=== PATIENT | female | born 1970 | race Caucasian/White ===

== ENCOUNTER 2020-03-27 15:25 | Emergency (ER) | payer OTHER ==
[2020-03-27 15:53] VITALS: BP 139/80; TEMP 99; BMI 19.9
--- OUTSIDE RECORDS SUMMARY | 2020-03-27 16:20 | XMS ---
:1970 Author Organization [facility] Care Team Providers Name Role Phone Chumaceiro, Damon Unavailable Unavailable Chumaceiro, Damon Unavailable Unavailable Chumaceiro, Damon Unavailable Unavailable Chumaceiro, Damon Unavailable Unavailable Chumaceiro, Damon Unavailable Unavailable Chumaceiro, Damon Unavailable Unavailable Chumaceiro, Damon Unavailable Unavailable Chumaceiro, Damon Unavailable Unavailable EYAL WOODS Unavailable EYAL WOODS Unavailable Re-disclosure Warning The records that you are about to access may contain information from federally- assisted alcohol or drug abuse programs. If such information is present, then the following federally mandated warning applies: This information has been disclosed to you from records protected by federal confidentiality rules (42 CFR part 2). The federal rules prohibit you from making any further disclosure of this information unless further disclosure is expressly permitted by the written consent of the person to whom it pertains or as otherwise permitted by 42 CFR part 2. A general authorization for the release of medical or other information is NOT sufficient for this purpose. The Federal rules restrict any use of the information to criminally investigate or prosecute any alcohol or drug abuse patient.The records that you are about to access may contain highly sensitive health information, the redisclosure of which is protected by Article 27-F of the [facility] Public Health law. If you continue you may haveaccess to information: Regarding HIV / AIDS; Provided by facilities licensed or operated by the [facility] Office of Mental Health; or Provided by the [facility] Office for People With Developmental Disabilities. If such information is present, then the following [facility] mandated warning applies: This information has been disclosed to you from confidential records which are protected by state law. State law prohibits you from making any further disclosure of this information without the specific written consent of the person to whom it pertains, or as otherwise permitted by law. Any unauthorized further disclosure in violation of state law may result in a fine or correction sentence or both. A general authorization for the release of medical or other information is NOT sufficient authorization for further disclosure. Encounters Encounter Providers Location Date Indications Data Source(s ) Attender: Damon 03/25/2020 [facility] EDT Office Attender: Damon 03/25/2020 12:00:00 AM EDT [facility] ([facility] Office Attender: Damon 03/24/2020 12:00:00 AM EDT [facility] ([facility] Office Attender: Damon 03/24/2020 12:00:00 AM EDT [facility] Office Attender: EYAL WOODS 03/23/2020 12:00:00 AM EDT [facility] Office Attender: EYAL WOODS 03/23/2020 12:00:00 AM EDT [facility] Office Attender: EYAL WOODS 03/23/2020 12:00:00 AM EDT [facility] Office Attender: EYAL WOODS 03/23/2020 12:00:00 AM EDT [facility] Office Attender: Damon 03/18/2020 12:00:00 AM EDT [facility] Office Attender: EYAL WOODS 03/16/2020 12:00:00 AM EDT [facility] Office Attender: EYAL WOODS 03/16/2020 12:00:00 AM EDT [facility] Office Attender: EYAL WOODS 03/16/2020 12:00:00 AM EDT [facility] Office Attender: EYAL WOODS 03/16/2020 12:00:00 AM EDT [facility] Office Attender: Damon 03/10/2020 12:00:00 AM EDT [facility] Office Attender: Damon 03/10/2020 12:00:00 AM EDT [facility] Office Attender: Damon 03/10/2020 12:00:00 AM EDT [facility] Office Attender: Damon 03/10/2020 12:00:00 AM EDT [facility] ([facility] Office Attender: Damon 03/10/2020 12:00:00 AM EDT [facility] ([facility] Office Attender: Damon 02/11/2020 12:00:00 AM EDT [facility] Office Attender: Damon 02/11/2020 12:00:00 AM EDT [facility] Office Attender: Damon 02/11/2020 12:00:00 AM EDT [facility] ([facility] Office Attender: Damon 02/11/2020 12:00:00 AM EDT [facility] ([facility] Office Insurance Providers Payer name Policy type Policy ID Covered Covered constitution party's Policy P williams / Coverage constitution party ID relationship to [employer] Inf ormation type [employer] HE[employer] [id number] SP [id number] [employer] [id number] FIRST CLAIMS Problems, Conditions, and Diagnoses Code Display Name Description Problem Type Effective Data Sour ce(s) Dates M79.671 Pain in right foot PAIN IN RIGHT FOOT Problem 0 [facility] ([facility] 12:00:[address] [facility], ) M79.671 Pain in right foot PAIN IN RIGHT FOOT Problem 0 [facility] (St 12:00:[address] [facility], ) M79.671 Pain in right foot PAIN IN RIGHT FOOT Problem 0 [facility] (St 12:00:[address] [facility], ) R22.2 Localized LOCALIZED Problem 03/18/2020 [facility] (St swelling, mass and SWELLING, MASS AND 12:00:00 AM [facility] lump, trunk LUMP, TRUNK EDT Medical, ) R22.2 Localized LOCALIZED Problem 03/18/2020 [facility] (St swelling, mass and SWELLING, MASS AND 12:00:00 AM [facility] lump, trunk LUMP, TRUNK EDT Medical, ) R22.2 Localized LOCALIZED Problem 03/18/2020 [facility] (St swelling, mass and SWELLING, MASS AND 12:00:00 AM [facility] lump, trunk LUMP, TRUNK EDT Medical, ) R22.2 Localized LOCALIZED Problem 03/18/2020 [facility] (St swelling, mass and SWELLING, MASS AND 12:00:00 AM [facility] lump, trunk LUMP, TRUNK EDT Medical, ) G57.60 Lesion of plantar LESION OF PLANTAR Problem 03/16/2020 [facility] (St nerve, unspecified NERVE, UNSPECIFIED 12:00:00 AM [facility] lower limb LOWER LIMB EDT [facility], ) M20.12 Hallux valgus HALLUX VALGUS Problem 03/16/2020 MED[facility] ( St (acquired), left (ACQUIRED), LEFT 12:00:00 AM [facility] foot FOOT EDT [facility], ) M20.11 Hallux valgus HALLUX VALGUS Problem 03/16/2020 [facility] ( St (acquired), right (ACQUIRED), [facility] G57.60 Lesion of plantar LESION OF PLANTAR Problem 03/16/2020 [facility] (St nerve, unspecified NERVE, UNSPECIFIED 12:00:00 AM [facility] lower limb LOWER LIMB T [facility], ) M20.12 Hallux valgus HALLUX VALGUS Problem 03/16/2020 MED[facility] ( St (acquired), left (ACQUIRED), LEFT 12:00:00 AM [facility] FOOT EDT [facility], ) M20.11 Hallux valgus HALLUX VALGUS Problem 03/16/2020 MED[facility] ( St (acquired), right (ACQUIRED), RIGHT 12:00:00 AM [facility] FOOT T [facility], ) G57.60 Lesion of plantar LESION OF PLANTAR Problem 03/16/2020 MED[facility] (St nerve, unspecified NERVE, UNSPECIFIED 12:00:00 AM [facility]'s lower limb LOWER LIMB EDT Medical, ) M20.12 Hallux valgus HALLUX VALGUS Problem 03/16/2020 MED[facility] ( St (acquired), left (ACQUIRED), LEFT 12:00:00 AM [facility] foot FOOT EDT [facility], ) M20.11 Hallux valgus HALLUX VALGUS Problem 03/16/2020 MED[facility] ( St (acquired), right (ACQUIRED), RIGHT 12:00:00 AM [facility]'s [facility] [employer] FOOT T [facility], ) G57.60 Lesion of plantar LESION OF PLANTAR Problem 03/16/2020 MED[facility] (St nerve, unspecified NERVE, UNSPECIFIED 12:00:00 AM [facility] lower limb LOWER LIMB T [facility], ) M20.12 Hallux valgus HALLUX VALGUS Problem 03/16/2020 [facility] ( St (acquired), left (ACQUIRED), LEFT 12:00:00 AM [facility]'s [facility] FOOT T [facility], ) M20.11 Hallux valgus HALLUX VALGUS Problem 03/16/2020 MED[facility] ( St (acquired), right (ACQUIRED), RIGHT 12:00:00 AM [facility]'s [employer] FOOT T [facility], ) G57.60 Lesion of plantar LESION OF PLANTAR Problem 03/16/2020 [facility] (St nerve, unspecified NERVE, UNSPECIFIED 12:00:00 AM [facility]'s lower limb LOWER LIMB EDT [facility], ) M20.12 Hallux valgus HALLUX VALGUS Problem 03/16/2020 [facility] ( St (acquired), left (ACQUIRED), LEFT 12:00:00 [facility] T [facility], ) M20.11 Hallux valgus HALLUX VALGUS Problem 03/16/2020 [facility] ( St (acquired), right (ACQUIRED), RIGHT 12:00:00 AM [facility] ) R53.83 Other fatigue OTHER FATIGUE Problem 03/10/2020 [facility] ( St 12:00:00 AM [facility] EDT [facility], ) F41.9 Anxiety disorder, ANXIETY DISORDER, Problem 03/10/2020 [facility] (St unspecified UNSPECIFIED 12:00:00 AM [facility] EDT [facility], ) R06.00 Dyspnea, DYSPNEA, Problem 03/10/2020 [facility] (St unspecified UNSPECIFIED 12:00:00 AM [facility] EDT [facility], ) R53.83 Other fatigue OTHER FATIGUE Problem 03/10/2020 [facility] ( St 12:00:00 AM [facility] EDT [facility], ) F41.9 Anxiety disorder, ANXIETY DISORDER, Problem 03/10/2020 [facility] (St unspecified UNSPECIFIED 12:00:00 AM [facility] EDT [facility], ) R06.00 Dyspnea, DYSPNEA, Problem 03/10/2020 [facility] (St unspecified UNSPECIFIED 12:00:00 AM [facility] EDT [facility], ) R53.83 Other fatigue OTHER FATIGUE Problem 03/10/2020 [facility] ( St 12:00:00 AM [facility] EDT Medical, ) F41.9 Anxiety disorder, ANXIETY DISORDER, Problem 03/10/2020 [facility] (St unspecified UNSPECIFIED 12:00:00 AM [facility] EDT [facility], ) R06.00 Dyspnea, DYSPNEA, Problem 03/10/2020 [facility] (St unspecified UNSPECIFIED 12:00:00 AM [facility] EDT [facility], ) R53.83 Other fatigue OTHER FATIGUE Problem 03/10/2020 MED[facility] ( St 12:00:00 AM [facility] EDT [facility], ) F41.9 Anxiety disorder, ANXIETY DISORDER, Problem 03/10/2020 [facility] (St unspecified UNSPECIFIED 12:00:00 AM [facility] EDT [facility], ) R06.00 Dyspnea, DYSPNEA, Problem 03/10/2020 [facility] (St unspecified UNSPECIFIED 12:00:00 AM [facility] EDT [facility], ) R53.83 Other fatigue OTHER FATIGUE Problem 03/10/2020 [facility] ( St 12:00:00 AM [facility] EDT [facility], ) F41.9 Anxiety disorder, ANXIETY DISORDER, Problem 03/10/2020 [facility] (St unspecified UNSPECIFIED 12:00:00 AM [facility] EDT [facility], ) R06.00 Dyspnea, DYSPNEA, Problem 03/10/2020 [facility] (St unspecified UNSPECIFIED 12:00:00 AM [facility] EDT [facility], ) R53.83 Other fatigue OTHER FATIGUE Problem 03/10/2020 [facility] ( St 12:00:00 AM [facility] EDT [facility], ) F41.9 Anxiety disorder, ANXIETY DISORDER, Problem 03/10/2020 [facility] (St unspecified UNSPECIFIED 12:00:00 AM [facility] EDT [facility], ) R06.00 Dyspnea, DYSPNEA, Problem 03/10/2020 [facility] (St unspecified UNSPECIFIED 12:00:00 AM [facility] EDT [facility], ) H91.93 Unspecified UNSPECIFIED Problem 02/11/2020 [facility] (St hearing loss, HEARING LOSS, 12:00:00 AM [facility] bilateral BILATERAL EDT Medical, ) M79.672 Pain in left foot PAIN IN LEFT FOOT Problem 02/11/2020 [facility] (St 12:00:00 AM [facility]T [facility], ) 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 0 [facility] (St mitral valve MITRAL VALVE 12:00:00 AM [facility] disorders DISORDERS EDT Medical, ) Z00.00 Encounter for ENCOUNTER FOR Problem 02/11/2020 [facility] ( St general adult GENERAL ADULT 12:00:00 [facility] examination EXAMINATION without abnormal WITHOUT ABNORMAL findings FINDINGS H91.93 Unspecified UNSPECIFIED Problem 02/11/2020 [facility] (St hearing loss, HEARING LOSS, 12:00:00 AM [facility] bilateral BILATERAL EDT Medical, ) M79.672 Pain in left foot PAIN IN LEFT FOOT Problem 02/11/2020 [facility] (St 12:00:00 AM [facility] EDT [facility], ) 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 0 [facility] (St mitral valve MITRAL VALVE 12:00:00 AM [facility] disorders DISORDERS T [facility], ) Z00.00 Encounter for ENCOUNTER FOR Problem 02/11/2020 MED[facility] ( St general adult GENERAL ADULT 12:00:00 AM [facility] medical MEDICAL EDT Medical, ) examination EXAMINATION without abnormal WITHOUT ABNORMAL findings FINDINGS H91.93 Unspecified UNSPECIFIED Problem 02/11/2020 [facility] (St hearing loss, HEARING LOSS, 12:00:00 AM [facility] bilateral BILATERAL EDT Medical, ) M79.672 Pain in left foot PAIN IN LEFT FOOT Problem 02/11/2020 [facility] (St 12:00:00 AM [facility] EDT [facility], ) 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 0 [facility] (St mitral valve MITRAL VALVE 12:00:00 AM [facility] disorders DISORDERS EDT Medical, ) Z00.00 Encounter for ENCOUNTER FOR Problem 02/11/2020 MED[facility] ( St general adult GENERAL ADULT 12:00:00 AM [facility] MEDICAL EDT Medical, ) examination EXAMINATION without abnormal WITHOUT ABNORMAL findings FINDINGS H91.93 Unspecified UNSPECIFIED Problem 02/11/2020 [facility] (St hearing loss, HEARING LOSS, 12:00:00 AM [facility] bilateral [facility] EDT Medical, ) M79.672 Pain in left foot PAIN IN LEFT FOOT Problem 02/11/2020 [facility] (St 12:00:00 AM [facility] EDT Medical, ) 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 0 [facility] (St mitral valve MITRAL VALVE 12:00:00 AM [facility] disorders DISORDERS EDT Medical, ) Z00.00 Encounter for ENCOUNTER FOR Problem 02/11/2020 MED[facility] ( St general adult GENERAL ADULT 12:00:00 AM [facility] MEDICAL EDT Medical, ) examination EXAMINATION without abnormal WITHOUT ABNORMAL findings FINDINGS H91.93 Unspecified UNSPECIFIED Problem 02/11/2020 [facility] (St hearing loss, HEARING LOSS, 12:00:00 AM [facility] bilateral BILATERAL EDT Medical, ) M79.672 Pain in left foot PAIN IN LEFT FOOT Problem 02/11/2020 [facility] (St 12:00:00 AM [facility] EDT Medical, ) 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 0 [facility] (St mitral valve MITRAL VALVE 12:00:00 AM [facility] disorders DISORDERS EDT Medical, ) Z00.00 Encounter for ENCOUNTER FOR Problem 02/11/2020 MED[facility] ( St general adult GENERAL ADULT 12:00:00 AM [facility], ) examination EXAMINATION without abnormal WITHOUT ABNORMAL findings FINDINGS H91.93 Unspecified UNSPECIFIED Problem 02/11/2020 MED[facility] (St hearing loss, HEARING LOSS, 12:00:00 AM [facility] bilateral BILATERAL T [facility], ) M79.672 Pain in left foot PAIN IN LEFT FOOT Problem 02/11/2020 [facility] (St 12:00:00 AM [facility]'s [facility], ) 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 0 [facility] (St mitral valve MITRAL VALVE 12:00:00 AM [facility] disorders DISORDERS T [facility], ) Z00.00 Encounter for ENCOUNTER FOR Problem 02/11/2020 MED[facility] ( St general adult GENERAL ADULT 12:00:00 [facility], ) examination EXAMINATION without abnormal WITHOUT ABNORMAL findings FINDINGS H91.93 Unspecified UNSPECIFIED Problem 02/11/2020 [facility] (St hearing loss, HEARING LOSS, 12:00:00 AM [facility] bilateral BILATERAL T [facility], ) M79.672 Pain in left foot PAIN IN LEFT FOOT Problem 02/11/2020 [facility] (St 12:00:00 AM [facility], ) 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 0 [facility] (St mitral valve MITRAL VALVE 12:00:00 AM [facility] disorders DISORDERS T [facility], ) Z00.00 Encounter for ENCOUNTER FOR Problem 02/11/2020 MED[facility] ( St general adult GENERAL ADULT 12:00:00 AM [facility], ) examination EXAMINATION without abnormal WITHOUT ABNORMAL findings FINDINGS Surgeries/Procedures Procedure Description Date Indications Data Source(s) Documentation of current 03/25/2020 [facility] ([facility] medications (procedure) 12:00:00 AM EDT [facility] ) Documentation of current 03/25/2020 [facility] ([facility] medications (procedure) 12:00:00 AM EDT [facility]) OFFICE OUTPATIENT VISIT 03/25/2020 [facility] 03/24/2020 [facility] EN ([facility] 15 MINUTES 12:00:00 AM EDT [facility], ) OFFICE OUTPATIENT VISIT 03/24/2020 [facility] EN ([facility] 15 MINUTES 12:00:00 AM EDT [facility], ) OFFICE OUTPATIENT VISIT 03/23/2020 [facility] EN ([facility] 10 MINUTES 12:00:00 AM EDT [facility], ) OFFICE OUTPATIENT VISIT 03/23/2020 [facility] EN ([facility] 10 MINUTES 12:00:00 AM EDT [facility], ) OFFICE OUTPATIENT VISIT 03/23/2020 [facility] EN ([facility] 10 MINUTES 12:00:00 AM EDT [facility], ) Documentation of current 03/18/2020 [facility] ([facility] medications (procedure) 12:00:[address] [facility], ) OFFICE OUTPATIENT VISIT 03/18/2020 [facility] EN ([facility] 15 MINUTES 12:00:00 AM EDT [facility], ) Documentation of current 03/18/2020 [facility] 03/18/2020 [facility] EN ([facility] 15 MINUTES 12:00:00 AM EDT [facility], ) Documentation of current 03/18/2020 [facility]PAT[facility] VISIT 03/18/2020 [facility] Documentation of current 03/18/2020 [facility]PATIENT VISIT 03/18/2020 [facility] EN ([facility] 15 MINUTES 12:00:00 AM EDT Medical, ) OFFICE OUTPATIENT NEW 20 03/16/2020 [facility] ([facility] MINUTES 12:00:00 AM EDT Medical, ) OFFICE OUTPATIENT NEW 20 03/16/2020 [facility] ([facility] MINUTES 12:00:00 AM EDT [facility], ) OFFICE OUTPATIENT NEW 20 03/16/2020 [facility] ([facility] MINUTES 12:00:00 AM EDT [facility], ) OFFICE OUTPATIENT NEW 20 03/16/2020 [facility] ([facility] MINUTES 12:00:00 AM EDT [facility], ) OFFICE OUTPATIENT NEW 20 03/16/2020 [facility] ([facility] MINUTES 12:00:00 AM EDT [facility], PC) Documentation of current 03/10/2020 [facility] ([facility] medications (procedure) 12:00:00 AM EDT [facility], PC) Documentation of current 03/10/2020 [facility] ([facility] medications (procedure) 12:00:00 AM EDT [facility], PC) Documentation of current 03/10/2020 [facility] ([facility] (procedure) 12:00:00 AM EDT [facility], PC) OFFICE OUTPATIENT VISIT 03/10/2020 [facility] EN ([facility] 15 MINUTES 12:00:00 AM EDT Medical, PC) Documentation of current 03/10/2020 [facility] ([facility] medications (procedure) 12:00:00 AM EDT [facility], PC) Documentation of current 03/10/2020 [facility] ([facility] medications (procedure) 12:00:00 AM EDT [facility], PC) Documentation of current 03/10/2020 [facility] ([facility] (procedure) 12:00:00 AM EDT [facility], PC) OFFICE OUTPATIENT VISIT 03/10/2020 [facility] EN ([facility] 15 MINUTES 12:00:00 AM EDT Medical, PC) Documentation of current 03/10/2020 [facility] ([facility] medications (procedure) 12:00:00 AM EDT [facility]ical, PC) Documentation of current 03/10/2020 [facility] ([facility] (procedure) 12:00:00 AM EDT [facility]) Documentation of current 03/10/2020 [facility] ([facility] medications (procedure) 12:00:00 AM EDT [facility]) OFFICE OUTPATIENT VISIT 03/10/2020 [facility] EN ([facility] 15 MINUTES 12:00:00 AM EDT Medical, PC) Documentation of current 03/10/2020 [facility] ([facility] medications (procedure) 12:00:00 AM EDT [facility]ical, PC) Documentation of current 03/10/2020 [facility] ([facility] medications (procedure) 12:00:00 AM EDT edical, PC) Documentation of current 03/10/2020 [facility] ([facility] medications (procedure) 12:00:[address] [facility], ) OFFICE OUTPATIENT VISIT 03/10/2020 MED[facility] EN ([facility] 15 MINUTES 12:00:00 AM [facility], ) Documentation of current 03/10/2020 MED [facility] ([facility] medications (procedure) 12:00:[address] [facility], ) Documentation of current 03/10/2020 MED [facility] ([facility] medications (procedure) 12:00:[address] [facility], ) Documentation of current 03/10/2020 MED [facility] ([facility] medications (procedure) 12:00:[address] [facility], ) OFFICE OUTPATIENT VISIT 03/10/2020 [facility] EN ([facility] 15 MINUTES 12:00:00 AM [facility], ) Documentation of current 03/10/2020 MED [facility] ([facility] medications (procedure) 12:00:[address] [facility], ) Documentation of current 03/10/2020 MED [facility] ([facility] medications (procedure) 12:00:[address] [facility], ) Documentation of current 03/10/2020 MED [facility] ([facility] medications (procedure) 12:00:[address] [facility], ) OFFICE OUTPATIENT VISIT 03/10/2020 [facility] EN ([facility] 15 MINUTES 12:00:00 AM [facility], ) Documentation of current 02/11/2020 MED [facility] ([facility] medications (procedure) 12:00:[address] [facility], ) ECG ROUTINE ECG W/LEAST 02/11/2020 MED[facility] EN ([facility] 12 LDS W/I&R 12:00:00 AM [facility], ) COLLECTION VENOUS BLOOD 02/11/2020 MED[facility] EN ([facility] VENIPUNCTURE 12:00:00 AM [facility], ) Documentation of current 02/11/2020 MED [facility] ([facility] medications (procedure) 12:00:[address] [facility], ) ECG ROUTINE ECG W/LEAST 02/11/2020 [facility] EN ([facility] 12 LDS W/I&R 12:00:00 AM [facility], ) COLLECTION VENOUS BLOOD 02/11/2020 MED[facility] EN ([facility] VENIPUNCTURE 12:00:00 AM [facility]) Documentation of current 02/11/2020 MED GEN ([facility] medications (procedure) 12:00:00 AM [facility]) ECG ROUTINE ECG W/LEAST 02/11/2020 MED[facility] EN ([facility] 12 LDS W/I&R 12:00:00 AM [facility], ) COLLECTION VENOUS BLOOD 02/11/2020 MED[facility] EN ([facility] VENIPUNCTURE 12:00:00 AM [facility]) Documentation of current 02/11/2020 MED GEN ([facility] medications (procedure) 12:00:00 AM [facility]) ECG ROUTINE ECG W/LEAST 02/11/2020 MED[facility] EN ([facility] 12 LDS W/I&R 12:00:00 AM [facility], ) COLLECTION VENOUS BLOOD 02/11/2020 MED[facility] EN ([facility] VENIPUNCTURE 12:00:00 AM [facility]) Documentation of current 02/11/2020 MED [facility] ([facility] medications (procedure) 12:00:00 AM [facility]) ECG ROUTINE ECG W/LEAST 02/11/2020 MED[facility] EN ([facility] 12 LDS W/I&R 12:00:00 AM [facility]) COLLECTION VENOUS BLOOD 02/11/2020 MED[facility] EN ([facility] VENIPUNCTURE 12:00:00 AM [facility]) Documentation of current 02/11/2020 MED GEN ([facility] medications (procedure) 12:00:00 AM [facility]) ECG ROUTINE ECG W/LEAST 02/11/2020 MED[facility] EN ([facility] 12 LDS W/I&R 12:00:00 AM [facility], ) COLLECTION VENOUS BLOOD 02/11/2020 MED[facility] EN ([facility] VENIPUNCTURE 12:00:00 AM [facility], ) Documentation of current 02/11/2020 MED [facility] ([facility] medications (procedure) 12:00:00 AM [facility]) ECG ROUTINE ECG W/LEAST 02/11/2020 MED[facility] EN ([facility] 12 LDS W/I&R 12:00:00 AM [facility], ) COLLECTION VENOUS BLOOD 02/11/2020 MED[facility] EN ([facility] VENIPUNCTURE 12:00:00 AM EDT [facility], ) Results ID Date Data Source [id number] 02/11/2020 12:00:00 AM EDT [facility] ([facility]) Name Value Range Interpretation Description Data Sup porting Code Source(s) Document(s ) Hemoglobin A1c 5.2 % Normal (applies to MED[facility] (St in Blood non-numeric [facility] results) Medical, ) ID Date Data Source [id number] 02/11/2020 12:00:00 AM EDT [facility] ([facility]) Name Value Range Interpretation Description Data Sup porting Code Source(s) Document(s ) Triglyceride 125 Normal (applies MED[facility] (St [Mass/volume] in mg/dL to non-numeric [facility] Serum or Plasma results) Medical, ) Cholesterol 202 Above high normal MED[facility] (St [Mass/volume] in mg/dL [facility] Serum or Plasma Medical, ) HDL Cholesterol 89 mg/dL Normal (applies MED[facility] ( St to non-numeric [facility] results) Medical, ) LDL Chol Calc 92 mg/dL Normal (applies MEDGEN (St (NIH) to non-numeric [facility] results) Medical, ) VLDL Cholesterol 21 mg/dL Normal (applies MEDGEN (St Oni to non-numeric [facility] results) Medical, ) ID Date Data Source [id number] 02/11/2020 12:00:00 AM EDT [facility] ([facility] [place], ) Name Value Range Interpretation Description Data Sup porting Code Source(s) Document(s ) Specific gravity 1.006 Normal (applies [facility] (St of Pericardial to non-numeric [facility] fluid by results) Medical, Refractometry ) pH of Lower 6.5 Normal (applies [facility] (St respiratory to non-numeric [facility] specimen results) Medical, ) Appearance of Clear Normal (applies [facility] (St Abdomen to non-numeric [facility] results) Medical, ) Urine-Color Yellow Normal (applies [facility] (St to non-numeric [facility] results) Medical, ) Protein Negative Normal (applies [facility] (St [Mass/volume] in to non-numeric [facility] Lower results) Medical, respiratory PC) specimen WBC Esterase Negative Normal (applies [facility] (St to non-numeric [facility] results) Medical, ) Occult Blood Negative Normal (applies [facility] (St to non-numeric [facility] results) Medical, ) Ketones Negative Normal (applies [facility] (St [Presence] in to non-numeric [facility] Blood by Tablet results) Medical, ) Glucose Negative Normal (applies [facility] (St [Mass/volume] in to non-numeric [facility] Urine collected results) [facility], for unspecified PC) duration Bilirubin Negative Normal (applies [facility] (St [Presence] in to non-numeric [facility] Peritoneal fluid results) Medical, ) Urobilinogen,Rosita 0.2 mg/dL Normal (applies [facility] (St i-Qn to non-numeric [facility] results) Medical, ) Nitrite, Urine Negative Normal (applies [facility] (S t to non-numeric [facility] results) Medical, ) Microscopic Normal (applies [facility] (St Examination to non-numeric [facility] results) Medical, ) ID Date Data Source [id number] 02/11/2020 12:00:00 AM EDT [facility] ([facility], ) Name Value Range Interpretation Description Data Sup porting Code Source(s) Document(s ) Glucose 93 mg/dL Normal (applies [facility] (St [Mass/volume] in to non-numeric [facility] Urine collected for results) Medical, unspecified PC) duration Urea nitrogen 16 mg/dL Normal (applies [facility] (St [Mass/volume] in to non-numeric [facility] Serum or Plasma results) Medical, ) Creatinine 0.79 Normal (applies [facility] (St [Interpretation] in mg/dL to non-numeric Maged' s Urine results) Medical, ) eGFR If Africn Am 103 Normal (applies [facility] (St mL/min/1 to non-numeric [facility] .73 results) Medical, ) eGFR If NonAfricn 89 Normal (applies [facility] (St Am mL/min/1 to non-numeric [facility] .73 results) Medical, PC) Sodium 138 Normal (applies [facility] (St [Moles/volume] in mmol/L to non-numeric [facility] Serum or Plasma results) Medical, ) BUN/Creatinine 20 Normal (applies [facility] (S t Ratio to non-numeric [facility] results) Medical, ) Potassium 4.2 Normal (applies [facility] (St [Mass/volume] in mmol/L to non-numeric [facility] Blood results) Medical, PC) Carbon dioxide, 22 Normal (applies [facility] ( St total mmol/L to non-numeric [facility] [Moles/volume] in results) Medical, Serum or Plasma PC) Chloride 105 Normal (applies [facility] (St [Moles/volume] in mmol/L to non-numeric [facility] Serum or Plasma results) Medical, ) Protein 6.6 g/dL Normal (applies [facility] (St [Mass/volume] in to non-numeric [facility] Serum or Plasma results) Medical, ) Microalbumin 4.2 g/dL Normal (applies [facility] (St [Mass/time] in to non-numeric [facility] Urine collected for results) Medical, unspecified PC) duration Calcium 9.5 Normal (applies [facility] (St [Moles/volume] in mg/dL to non-numeric [facility] Urine collected for results) Medical, unspecified PC) duration A/G Ratio 1.8 Normal (applies [facility] (St to non-numeric [facility] results) Medical, PC) Globulin, Total 2.4 g/dL Normal (applies [facility] ( St to non-numeric [facility] results) Medical, PC) Bilirubin.total 0.4 Normal (applies [facility] ( St [Mass/volume] in mg/dL to non-numeric [facility] Serum or Plasma results) Medical, PC) Aspartate 19 IU/L Normal (applies [facility] (St aminotransferase to non-numeric [facility] [Enzymatic results) Medical, activity/volume] in PC) Serum or Plasma Alkaline 44 IU/L Normal (applies [facility] (St phosphatase to non-numeric [facility] [Enzymatic results) Medical, activity/volume] in PC) Serum, Plasma or Blood Alanine 11 IU/L Normal (applies [facility] (St aminotransferase to non-numeric [facility] [Enzymatic results) Medical, activity/volume] in PC) Serum or Plasma ID Date Data Source [id number] 02/11/2020 12:00:00 AM EDT [facility] ([facility], ) Name Value Range Interpretation Description Data Sup porting Code Source(s) Document(s ) Leukocytes 6.9 Normal (applies [facility] (St [#/volume] in x10E3/uL to non-numeric [facility] Blood by results) Medical, ) Automated count Erythrocytes 4.08 Normal (applies [facility] (St [#/volume] in x10E6/uL to non-numeric [facility] Blood by results) [facility], ) Automated count Hemoglobin 12.1 Normal (applies [facility] (St [Mass/volume] in g/dL to non-numeric [facility] Blood results) [facility], ) Hematocrit 36.0 % Normal (applies [facility] (St [Volume to non-numeric [facility] Fraction] of results) [facility], ) Blood by Automated count MCH 29.7 pg Normal (applies [facility] (St to non-numeric [facility] results) [facility], ) MCV 88 fL Normal (applies [facility] (St to non-numeric [facility] results) [facility], ) MCHC 33.6 Normal (applies [facility] (St g/dL to non-numeric [facility] results) [facility], ) RDW 13.3 % Normal (applies [facility] (St to non-numeric [facility] results) [facility], ) Lymphs 21 % Normal (applies [facility] (St to non-numeric [facility] results) [facility], ) Platelets 252 Normal (applies [facility] (St [#/area] in x10E3/uL to non-numeric [facility] Blood by results) [facility], ) Microscopy high power field Neutrophils [#] 72 % Normal (applies [facility] ( St in Body fluid by to non-numeric [facility] Manual count results) [facility], ) Eos 1 % Normal (applies [facility] (St to non-numeric [facility] results) [facility], ) Monocytes 6 % Normal (applies [facility] (St [#/volume] in to non-numeric [facility] Cord blood results) [facility], ) Basos 0 % Normal (applies [facility] (St to non-numeric [facility] results) [facility], ) Neutrophils 4.9 Normal (applies [facility] (St (Absolute) x10E3/uL to non-numeric [facility] results) [facility], ) Lymphs 1.5 Normal (applies [facility] (St (Absolute) x10E3/uL to non-numeric [facility] results) [facility], ) Monocytes(Absolu 0.4 Normal (applies [facility] (St te) x10E3/uL to non-numeric [facility] results) [facility], ) Eos (Absolute) 0.1 Normal (applies [facility] (S t x10E3/uL to non-numeric [facility] results) Medical, ) Baso (Absolute) 0.0 Normal (applies [facility] ( St x10E3/uL to non-numeric [facility] results) Medical, ) Immature 0 % Normal (applies [facility] (St Granulocytes to non-numeric [facility] results) Medical, PC) Immature Grans 0.0 Normal (applies [facility] (S t (Abs) x10E3/uL to non-numeric [facility] results) Medical, ) ID Date Data Source [id number] 02/11/2020 12:00:00 AM EDT [facility] ([facility], ) Name Value Range Interpretation Description Data Sup porting Code Source(s) Document(s ) Hemoglobin A1c 5.2 % Normal (applies to [facility] (St in Blood non-numeric [facility] results) Medical, ) ID Date Data Source [id number] 02/11/2020 12:00:00 AM EDT [facility] ([facility], ) Name Value Range Interpretation Description Data Sup porting Code Source(s) Document(s ) Triglyceride 125 Normal (applies [facility] (St [Mass/volume] in mg/dL to non-numeric [facility] Serum or Plasma results) Medical, ) Cholesterol 202 Above high normal [facility] (St [Mass/volume] in mg/dL [facility] Serum or Plasma Medical, ) HDL Cholesterol 89 mg/dL Normal (applies [facility] ( St to non-numeric [facility] results) Medical, ) VLDL Cholesterol 21 mg/dL Normal (applies [facility] (St Oni to non-numeric [facility] results) Medical, ) LDL Chol Calc 92 mg/dL Normal (applies [facility] (St (NIH) to non-numeric [facility] results) Medical, ) ID Date Data Source [id number] 02/11/2020 12:00:00 AM EDT [facility] ([facility], ) Name Value Range Interpretation Description Data Sup porting Code Source(s) Document(s ) Specific gravity 1.006 Normal (applies [facility] (St of Pericardial to non-numeric [facility] fluid by results) Medical, Refractometry ) Appearance of Clear Normal (applies [facility] (St Abdomen to non-numeric [facility] results) Medical, ) pH of Lower 6.5 Normal (applies [facility] (St respiratory to non-numeric [facility] specimen results) Medical, PC) Urine-Color Yellow Normal (applies [facility] (St to non-numeric [facility] results) Medical, PC) Protein Negative Normal (applies [facility] (St [Mass/volume] in to non-numeric [facility] Lower results) Medical, respiratory PC) specimen WBC Esterase Negative Normal (applies [facility] (St to non-numeric [facility] results) Medical, PC) Ketones Negative Normal (applies [facility] (St [Presence] in to non-numeric [facility] Blood by Tablet results) Medical, PC) Glucose Negative Normal (applies [facility] (St [Mass/volume] in to non-numeric [facility] Urine collected results) Medical, for unspecified PC) duration Occult Blood Negative Normal (applies [facility] (St to non-numeric [facility] results) Medical, PC) Nitrite, Urine Negative Normal (applies [facility] (S t to non-numeric [facility] results) Medical, PC) Urobilinogen,Rosita 0.2 mg/dL Normal (applies [facility] (St i-Qn to non-numeric Amged's results) Medical, PC) Bilirubin Negative Normal (applies [facility] (St [Presence] in to non-numeric [facility] Peritoneal fluid results) Medical, ) Microscopic Normal (applies [facility] (St Examination to non-numeric [facility] results) Medical, ) ID Date Data Source [id number] 02/11/2020 12:00:00 AM EDT [facility] ([facility]) Name Value Range Interpretation Description Data Sup porting Code Source(s) Document(s ) Urea nitrogen 16 mg/dL Normal (applies [facility] (St [Mass/volume] in to non-numeric [facility] Serum or Plasma results) Medical, PC) Creatinine 0.79 Normal (applies [facility] (St [Interpretation] in mg/dL to non-numeric Maged' s Urine results) Medical, PC) Glucose 93 mg/dL Normal (applies [facility] (St [Mass/volume] in to non-numeric [facility] Urine collected for results) Medical, unspecified PC) duration eGFR If Africn Am 103 Normal (applies [facility] (St mL/min/1 to non-numeric [facility] .73 results) Medical, PC) eGFR If NonAfricn 89 Normal (applies [facility] (St Am mL/min/1 to non-numeric [facility] .73 results) Medical, PC) Sodium 138 Normal (applies [facility] (St [Moles/volume] in mmol/L to non-numeric [facility] Serum or Plasma results) Medical, PC) BUN/Creatinine 20 Normal (applies [facility] (S t Ratio to non-numeric [facility] results) Medical, PC) Potassium 4.2 Normal (applies [facility] (St [Mass/volume] in mmol/L to non-numeric [facility] Blood results) Medical, PC) Calcium 9.5 Normal (applies [facility] (St [Moles/volume] in mg/dL to non-numeric [facility] Urine collected for results) Medical, unspecified PC) duration Chloride 105 Normal (applies [facility] (St [Moles/volume] in mmol/L to non-numeric [facility] Serum or Plasma results) Medical, ) Carbon dioxide, 22 Normal (applies [facility] ( St total mmol/L to non-numeric [facility] [Moles/volume] in results) Medical, Serum or Plasma PC) Microalbumin 4.2 g/dL Normal (applies [facility] (St [Mass/time] in to non-numeric [facility] Urine collected for results) Medical, unspecified PC) duration Protein 6.6 g/dL Normal (applies [facility] (St [Mass/volume] in to non-numeric [facility] Serum or Plasma results) Medical, ) Bilirubin.total 0.4 Normal (applies [facility] ( St [Mass/volume] in mg/dL to non-numeric [facility] Serum or Plasma results) Medical, PC) A/G Ratio 1.8 Normal (applies [facility] (St to non-numeric [facility] results) Medical, PC) Globulin, Total 2.4 g/dL Normal (applies [facility] ( St to non-numeric [facility] results) Medical, PC) Alanine 11 IU/L Normal (applies [facility] (St aminotransferase to non-numeric [facility]'s [Enzymatic results) Medical, activity/volume] in PC) Serum or Plasma Alkaline 44 IU/L Normal (applies [facility] (St phosphatase to non-numeric [facility] [Enzymatic results) Medical, activity/volume] in PC) Serum, Plasma or Blood Aspartate 19 IU/L Normal (applies [facility] (St aminotransferase to non-numeric [facility] [Enzymatic results) Medical, activity/volume] in PC) Serum or Plasma ID Date Data Source [id number] 02/11/2020 12:00:00 AM EDT [facility] ([facility], ) Name Value Range Interpretation Description Data Sup porting Code Source(s) Document(s ) Leukocytes 6.9 Normal (applies [facility] (St [#/volume] in x10E3/uL to non-numeric [facility] Blood by results) Medical, ) Automated count Erythrocytes 4.08 Normal (applies [facility] (St [#/volume] in x10E6/uL to non-numeric [facility] Blood by results) Medical, ) Automated count Hematocrit 36.0 % Normal (applies [facility] (St [Volume to non-numeric [facility]'s Fraction] of results) Medical, ) Blood by Automated count Hemoglobin 12.1 Normal (applies [facility] (St [Mass/volume] in g/dL to non-numeric [facility] Blood results) Medical, ) MCV 88 fL Normal (applies [facility] (St to non-numeric [facility] results) Medical, ) MCH 29.7 pg Normal (applies [facility] (St to non-numeric [facility] results) Medical, ) MCHC 33.6 Normal (applies [facility] (St g/dL to non-numeric [facility] results) Medical, ) RDW 13.3 % Normal (applies [facility] (St to non-numeric [facility] results) Medical, ) Platelets 252 Normal (applies [facility] (St [#/area] in x10E3/uL to non-numeric [facility] Blood by results) Medical, ) Microscopy high power field Neutrophils [#] 72 % Normal (applies [facility] ( St in Body fluid by to non-numeric [facility] Manual count results) Medical, ) Lymphs 21 % Normal (applies [facility] (St to non-numeric [facility] results) Medical, ) Monocytes 6 % Normal (applies [facility] (St [#/volume] in to non-numeric [facility] Cord blood results) Medical, ) Neutrophils 4.9 Normal (applies [facility] (St (Absolute) x10E3/uL to non-numeric [facility] results) Medical, ) Eos 1 % Normal (applies [facility] (St to non-numeric [facility] results) Medical, ) Basos 0 % Normal (applies [facility] (St to non-numeric [facility] results) Medical, ) Lymphs 1.5 Normal (applies [facility] (St (Absolute) x10E3/uL to non-numeric [facility] results) Medical, ) Monocytes(Absolu 0.4 Normal (applies [facility] (St te) x10E3/uL to non-numeric [facility] results) Medical, ) Eos (Absolute) 0.1 Normal (applies [facility] (S t x10E3/uL to non-numeric [facility]'s results) Medical, ) Immature 0 % Normal (applies [facility] (St Granulocytes to non-numeric [facility] results) Medical, ) Baso (Absolute) 0.0 Normal (applies [facility] ( St x10E3/uL to non-numeric [facility] results) Medical, ) Immature Grans 0.0 Normal (applies [facility] (S t (Abs) x10E3/uL to non-numeric [facility] results) Medical, ) ID Date Data Source [id number] 02/11/2020 12:00:00 AM EDT [facility] ([facility], ) Name Value Range Interpretation Description Data Sup porting Code Source(s) Document(s ) Hemoglobin A1c 5.2 % Normal (applies to [facility] (St in Blood non-numeric [facility] results) [facility], ) ID Date Data Source [id number] 02/11/2020 12:00:00 AM EDT [facility] ([facility], ) Name Value Range Interpretation Description Data Sup porting Code Source(s) Document(s ) Cholesterol 202 Above high normal [facility] (St [Mass/volume] in mg/dL [facility] Serum or Plasma Medical, ) Triglyceride 125 Normal (applies [facility] (St [Mass/volume] in mg/dL to non-numeric [facility] Serum or Plasma results) Medical, ) HDL Cholesterol 89 mg/dL Normal (applies [facility] ( St to non-numeric [facility] results) Medical, ) VLDL Cholesterol 21 mg/dL Normal (applies [facility] (St Oni to non-numeric [facility] results) Medical, ) LDL Chol Calc 92 mg/dL Normal (applies [facility] (St (NIH) to non-numeric [facility] results) Medical, ) ID Date Data Source [id number] 02/11/2020 12:00:00 AM EDT [facility] ([facility]) Name Value Range Interpretation Description Data Sup porting Code Source(s) Document(s ) Specific gravity 1.006 Normal (applies [facility] (St of Pericardial to non-numeric [facility] fluid by results) Medical, Refractometry PC) pH of Lower 6.5 Normal (applies [facility] (St respiratory to non-numeric [facility] specimen results) Medical, PC) Urine-Color Yellow Normal (applies [facility] (St to non-numeric [facility] results) Medical, PC) Appearance of Clear Normal (applies [facility] (St Abdomen to non-numeric [facility] results) Medical, PC) Protein Negative Normal (applies [facility] (St [Mass/volume] in to non-numeric [facility] Lower results) Medical, respiratory PC) specimen WBC Esterase Negative Normal (applies [facility] (St to non-numeric [facility] results) Medical, PC) Glucose Negative Normal (applies [facility] (St [Mass/volume] in to non-numeric [facility] Urine collected results) Medical, for unspecified PC) duration Occult Blood Negative Normal (applies [facility] (St to non-numeric [facility] results) Medical, PC) Ketones Negative Normal (applies [facility] (St [Presence] in to non-numeric [facility] Blood by Tablet results) Medical, PC) Bilirubin Negative Normal (applies [facility] (St [Presence] in to non-numeric [facility] Peritoneal fluid results) Medical, PC) Urobilinogen,Rosita 0.2 mg/dL Normal (applies [facility] (St i-Qn to non-numeric [facility] results) Medical, PC) Nitrite, Urine Negative Normal (applies [facility] (S t to non-numeric [facility] results) Medical, PC) Microscopic Normal (applies [facility] (St Examination to non-numeric [facility] results) Medical, PC) ID Date Data Source [id number] 02/11/2020 12:00:00 AM EDT [facility] ([facility]) Name Value Range Interpretation Description Data Sup porting Code Source(s) Document(s ) Glucose 93 mg/dL Normal (applies [facility] (St [Mass/volume] in to non-numeric [facility] Urine collected for results) Medical, unspecified PC) duration Urea nitrogen 16 mg/dL Normal (applies [facility] (St [Mass/volume] in to non-numeric [facility] Serum or Plasma results) Medical, PC) Creatinine 0.79 Normal (applies [facility] (St [Interpretation] in mg/dL to non-numeric Maged' s Urine results) Medical, PC) eGFR If NonAfricn 89 Normal (applies [facility] (St Am mL/min/1 to non-numeric [facility] .73 results) Medical, PC) BUN/Creatinine 20 Normal (applies [facility] (S t Ratio to non-numeric [facility]'s results) Medical, PC) eGFR If Africn Am 103 Normal (applies [facility] (St mL/min/1 to non-numeric [facility] .73 results) Medical, PC) Sodium 138 Normal (applies [facility] (St [Moles/volume] in mmol/L to non-numeric [facility] Serum or Plasma results) Medical, PC) Potassium 4.2 Normal (applies [facility] (St [Mass/volume] in mmol/L to non-numeric [facility] Blood results) Medical, PC) Chloride 105 Normal (applies [facility] (St [Moles/volume] in mmol/L to non-numeric [facility] Serum or Plasma results) Medical, PC) Carbon dioxide, 22 Normal (applies [facility] ( St total mmol/L to non-numeric [facility] [Moles/volume] in results) Medical, Serum or Plasma PC) Calcium 9.5 Normal (applies [facility] (St [Moles/volume] in mg/dL to non-numeric [facility] Urine collected for results) Medical, unspecified PC) duration Protein 6.6 g/dL Normal (applies [facility] (St [Mass/volume] in to non-numeric [facility] Serum or Plasma results) Medical, PC) Microalbumin 4.2 g/dL Normal (applies [facility] (St [Mass/time] in to non-numeric [facility] Urine collected for results) Medical, unspecified PC) duration Globulin, Total 2.4 g/dL Normal (applies [facility] ( St to non-numeric Maegd's results) Medical, PC) A/G Ratio 1.8 Normal (applies [facility] (St to non-numeric [facility] results) Medical, PC) Bilirubin.total 0.4 Normal (applies [facility] ( St [Mass/volume] in mg/dL to non-numeric [facility] Serum or Plasma results) Medical, PC) Aspartate 19 IU/L Normal (applies [facility] (St aminotransferase to non-numeric [facility] [Enzymatic results) Medical, activity/volume] in ) Serum or Plasma Alkaline 44 IU/L Normal (applies [facility] (St phosphatase to non-numeric [facility] [Enzymatic results) Medical, activity/volume] in ) Serum, Plasma or Blood Alanine 11 IU/L Normal (applies [facility] (St aminotransferase to non-numeric [facility] [Enzymatic results) Medical, activity/volume] in ) Serum or Plasma ID Date Data Source [id number] 02/11/2020 12:00:00 AM EDT [facility] ([facility], ) Name Value Range Interpretation Description Data Sup porting Code Source(s) Document(s ) Leukocytes 6.9 Normal (applies [facility] (St [#/volume] in x10E3/uL to non-numeric [facility] Blood by results) [facility], ) Automated count Erythrocytes 4.08 Normal (applies [facility] (St [#/volume] in x10E6/uL to non-numeric [facility] Blood by results) [facility], ) Automated count Hematocrit 36.0 % Normal (applies [facility] (St [Volume to non-numeric Maged's Fraction] of results) [facility], ) Blood by Automated count Hemoglobin 12.1 Normal (applies [facility] (St [Mass/volume] in g/dL to non-numeric [facility] Blood results) [facility], ) MCV 88 fL Normal (applies [facility] (St to non-numeric Maged's results) [facility], ) MCH 29.7 pg Normal (applies [facility] (St to non-numeric Maged's results) [facility], ) MCHC 33.6 Normal (applies [facility] (St g/dL to non-numeric Maged's results) [facility], ) RDW 13.3 % Normal (applies [facility] (St to non-numeric Maged's results) [facility], ) Platelets 252 Normal (applies [facility] (St [#/area] in x10E3/uL to non-numeric [facility] Blood by results) [facility], ) Microscopy high power field Neutrophils [#] 72 % Normal (applies [facility] ( St in Body fluid by to non-numeric [facility] Manual count results) [facility], ) Lymphs 21 % Normal (applies [facility] (St to non-numeric Maged's results) [facility], ) Monocytes 6 % Normal (applies [facility] (St [#/volume] in to non-numeric M[facility]'s Cord blood results) Medical, ) Eos 1 % Normal (applies [facility] (St to non-numeric Maged's results) Medical, ) Basos 0 % Normal (applies [facility] (St to non-numeric Maged's results) Medical, ) Neutrophils 4.9 Normal (applies [facility] (St (Absolute) x10E3/uL to non-numeric M[facility]'s results) Medical, ) Lymphs 1.5 Normal (applies [facility] (St (Absolute) x10E3/uL to non-numeric M[facility]'s results) Medical, ) Monocytes(Absolu 0.4 Normal (applies [facility] (St te) x10E3/uL to non-numeric M[facility]'s results) Medical, ) Eos (Absolute) 0.1 Normal (applies [facility] (S t x10E3/uL to non-numeric Maged's results) [facility], ) Baso (Absolute) 0.0 Normal (applies [facility] ( St x10E3/uL to non-numeric Maged's results) Medical, ) Immature 0 % Normal (applies [facility] (St Granulocytes to non-numeric Maged's results) [facility], ) Immature Grans 0.0 Normal (applies [facility] (S t (Abs) x10E3/uL to non-numeric Maged's results) [facility], ) ID Date Data Source [id number] 02/11/2020 12:00:00 AM EDT [facility] ([facility], ) Name Value Range Interpretation Description Data Sup porting Code Source(s) Document(s ) Hemoglobin A1c 5.2 % Normal (applies to [facility] (St in Blood non-numeric Maged's results) [facility], ) ID Date Data Source [id number] 02/11/2020 12:00:00 AM EDT [facility] ([facility], ) Name Value Range Interpretation Description Data Sup porting Code Source(s) Document(s ) Cholesterol 202 Above high normal [facility] (St [Mass/volume] in mg/dL [facility] Serum or Plasma Medical, ) Triglyceride 125 Normal (applies [facility] (St [Mass/volume] in mg/dL to non-numeric [facility] Serum or Plasma results) Medical, ) HDL Cholesterol 89 mg/dL Normal (applies [facility] ( St to non-numeric Maged's results) Medical, PC) LDL Chol Calc 92 mg/dL Normal (applies [facility] (St (NIH) to non-numeric Maged's results) Medical, PC) VLDL Cholesterol 21 mg/dL Normal (applies [facility] (St Oni to non-numeric Maged's results) Medical, PC) ID Date Data Source [id number] 02/11/2020 12:00:00 AM EDT [facility] ([facility]) Name Value Range Interpretation Description Data Sup porting Code Source(s) Document(s ) Specific gravity 1.006 Normal (applies [facility] (St of Pericardial to non-numeric Maged's fluid by results) Medical, Refractometry PC) pH of Lower 6.5 Normal (applies [facility] (St respiratory to non-numeric Maged's specimen results) Medical, PC) WBC Esterase Negative Normal (applies [facility] (St to non-numeric Maged's results) Medical, PC) Appearance of Clear Normal (applies [facility] (St Abdomen to non-numeric Maged's results) Medical, PC) Urine-Color Yellow Normal (applies [facility] (St to non-numeric Maged's results) Medical, PC) Ketones Negative Normal (applies [facility] (St [Presence] in to non-numeric [facility] Blood by Tablet results) Medical, ) Protein Negative Normal (applies [facility] (St [Mass/volume] in to non-numeric [facility] Lower results) Medical, respiratory PC) specimen Glucose Negative Normal (applies [facility] (St [Mass/volume] in to non-numeric [facility] Urine collected results) Medical, for unspecified PC) duration Occult Blood Negative Normal (applies [facility] (St to non-numeric [facility] results) Medical, PC) Bilirubin Negative Normal (applies [facility] (St [Presence] in to non-numeric [facility] Peritoneal fluid results) Medical, ) Nitrite, Urine Negative Normal (applies [facility] (S t to non-numeric [facility] results) Medical, PC) Urobilinogen,Rosita 0.2 mg/dL Normal (applies [facility] (St i-Qn to non-numeric [facility] results) Medical, PC) Microscopic Normal (applies [facility] (St Examination to non-numeric [facility] results) Medical, ) ID Date Data Source [id number] 02/11/2020 12:00:00 AM EDT [facility] ([facility] Name Value Range Interpretation Description Data Sup porting Code Source(s) Document(s ) Glucose 93 mg/dL Normal (applies [facility] (St [Mass/volume] in to non-numeric [facility] Urine collected for results) Medical, unspecified PC) duration Urea nitrogen 16 mg/dL Normal (applies [facility] (St [Mass/volume] in to non-numeric [facility] Serum or Plasma results) Medical, PC) Creatinine 0.79 Normal (applies [facility] (St [Interpretation] in mg/dL to non-numeric [facility] s Urine results) Medical, PC) eGFR If Africn Am 103 Normal (applies [facility] (St mL/min/1 to non-numeric [facility] .73 results) Medical, PC) BUN/Creatinine 20 Normal (applies [facility] (S t Ratio to non-numeric [facility] results) Medical, PC) eGFR If NonAfricn 89 Normal (applies [facility] (St Am mL/min/1 to non-numeric [facility] .73 results) Medical, PC) Sodium 138 Normal (applies [facility] (St [Moles/volume] in mmol/L to non-numeric [facility] Serum or Plasma results) Medical, PC) Potassium 4.2 Normal (applies [facility] (St [Mass/volume] in mmol/L to non-numeric [facility] Blood results) Medical, PC) Carbon dioxide, 22 Normal (applies [facility] ( St total mmol/L to non-numeric [facility] [Moles/volume] in results) Medical, Serum or Plasma PC) Calcium 9.5 Normal (applies [facility] (St [Moles/volume] in mg/dL to non-numeric [facility] Urine collected for results) Medical, unspecified PC) duration Chloride 105 Normal (applies [facility] (St [Moles/volume] in mmol/L to non-numeric [facility] Serum or Plasma results) Medical, PC) Protein 6.6 g/dL Normal (applies [facility] (St [Mass/volume] in to non-numeric [facility] Serum or Plasma results) Medical, PC) Microalbumin 4.2 g/dL Normal (applies [facility] (St [Mass/time] in to non-numeric [facility] Urine collected for results) Medical, unspecified PC) duration Globulin, Total 2.4 g/dL Normal (applies [facility] ( St to non-numeric [facility] results) Medical, PC) Bilirubin.total 0.4 Normal (applies [facility] ( St [Mass/volume] in mg/dL to non-numeric [facility] Serum or Plasma results) [facility], ) A/G Ratio 1.8 Normal (applies [facility] (St to non-numeric [facility] results) [facility], ) Aspartate 19 IU/L Normal (applies [facility] (St aminotransferase to non-numeric [facility] [Enzymatic results) Medical, activity/volume] in ) Serum or Plasma Alkaline 44 IU/L Normal (applies [facility] (St phosphatase to non-numeric [facility] [Enzymatic results) Medical, activity/volume] in ) Serum, Plasma or Blood Alanine 11 IU/L Normal (applies [facility] (St aminotransferase to non-numeric [facility] [Enzymatic results) Medical, activity/volume] in ) Serum or Plasma ID Date Data Source [id number] 02/11/2020 12:00:00 AM EDT [facility] ([facility], ) Name Value Range Interpretation Description Data Sup porting Code Source(s) Document(s ) Erythrocytes 4.08 Normal (applies [facility] (St [#/volume] in x10E6/uL to non-numeric [facility] Blood by results) [facility], ) Automated count Leukocytes 6.9 Normal (applies [facility] (St [#/volume] in x10E3/uL to non-numeric [facility] Blood by results) [facility], ) Automated count Hematocrit 36.0 % Normal (applies [facility] (St [Volume to non-numeric [facility] Fraction] of results) [facility], ) Blood by Automated count MCV 88 fL Normal (applies [facility] (St to non-numeric [facility] results) [facility], ) Hemoglobin 12.1 Normal (applies [facility] (St [Mass/volume] in g/dL to non-numeric [facility] Blood results) [facility], ) MCH 29.7 pg Normal (applies [facility] (St to non-numeric [facility] results) [facility], ) MCHC 33.6 Normal (applies [facility] (St g/dL to non-numeric [facility] results) [facility], ) Platelets 252 Normal (applies [facility] (St [#/area] in x10E3/uL to non-numeric [facility] Blood by results) [facility], ) Microscopy high power field Neutrophils [#] 72 % Normal (applies [facility] ( St in Body fluid by to non-numeric [facility] Manual count results) Medical, ) RDW 13.3 % Normal (applies [facility] (St to non-numeric [facility] results) Medical, ) Monocytes 6 % Normal (applies [facility] (St [#/volume] in to non-numeric [facility] Cord blood results) Medical, ) Lymphs 21 % Normal (applies [facility] (St to non-numeric [facility] results) Medical, ) Eos 1 % Normal (applies [facility] (St to non-numeric [facility] results) Medical, ) Neutrophils 4.9 Normal (applies [facility] (St (Absolute) x10E3/uL to non-numeric [facility] results) Medical, ) Basos 0 % Normal (applies [facility] (St to non-numeric [facility] results) [facility], ) Lymphs 1.5 Normal (applies [facility] (St (Absolute) x10E3/uL to non-numeric [facility] results) Medical, ) Monocytes(Absolu 0.4 Normal (applies [facility] (St te) x10E3/uL to non-numeric [facility] results) [facility], ) Baso (Absolute) 0.0 Normal (applies [facility] ( St x10E3/uL to non-numeric [facility] results) Medical, ) Immature 0 % Normal (applies [facility] (St Granulocytes to non-numeric [facility] results) [facility], ) Eos (Absolute) 0.1 Normal (applies [facility] (S t x10E3/uL to non-numeric [facility] results) Medical, ) Immature Grans 0.0 Normal (applies [facility] (S t (Abs) x10E3/uL to non-numeric [facility] results) [facility], ) ID Date Data Source [id number] 02/11/2020 12:00:00 AM EDT [facility] ([facility], ) Name Value Range Interpretation Description Data Sup porting Code Source(s) Document(s ) Hemoglobin A1c 5.2 % Normal (applies to [facility] (St in Blood non-numeric [facility] results) [facility], ) ID Date Data Source [id number] 02/11/2020 12:00:00 AM EDT [facility] ([facility], ) Name Value Range Interpretation Description Data Sup porting Code Source(s) Document(s ) Triglyceride 125 Normal (applies [facility] (St [Mass/volume] in mg/dL to non-numeric [facility] Serum or Plasma results) Medical, PC) HDL Cholesterol 89 mg/dL Normal (applies [facility] ( St to non-numeric [facility] results) Medical, PC) Cholesterol 202 Above high normal [facility] (St [Mass/volume] in mg/dL [facility] Serum or Plasma Medical, PC) LDL Chol Calc 92 mg/dL Normal (applies [facility] (St (NIH) to non-numeric [facility] results) Medical, PC) VLDL Cholesterol 21 mg/dL Normal (applies [facility] (St Oni to non-numeric [facility] results) Medical, PC) ID Date Data Source [id number] 02/11/2020 12:00:00 AM EDT [facility] ([facility]) Name Value Range Interpretation Description Data Sup porting Code Source(s) Document(s ) Specific gravity 1.006 Normal (applies [facility] (St of Pericardial to non-numeric [facility] fluid by results) Medical, Refractometry PC) pH of Lower 6.5 Normal (applies [facility] (St respiratory to non-numeric [facility] specimen results) Medical, PC) Urine-Color Yellow Normal (applies [facility] (St to non-numeric [facility] results) Medical, PC) Appearance of Clear Normal (applies [facility] (St Abdomen to non-numeric [facility] results) Medical, PC) WBC Esterase Negative Normal (applies [facility] (St to non-numeric [facility] results) Medical, PC) Glucose Negative Normal (applies [facility] (St [Mass/volume] in to non-numeric [facility] Urine collected results) Medical, for unspecified PC) duration Protein Negative Normal (applies [facility] (St [Mass/volume] in to non-numeric [facility] Lower results) Medical, respiratory PC) specimen Ketones Negative Normal (applies [facility] (St [Presence] in to non-numeric [facility] Blood by Tablet results) Medical, PC) Occult Blood Negative Normal (applies [facility] (St to non-numeric [facility] results) Medical, PC) Urobilinogen,Rosita 0.2 mg/dL Normal (applies [facility] (St i-Qn to non-numeric [facility] results) Medical, PC) Nitrite, Urine Negative Normal (applies [facility] (S t to non-numeric [facility] results) Medical, PC) Bilirubin Negative Normal (applies [facility] (St [Presence] in to non-numeric [facility] Peritoneal fluid results) Medical, PC) Microscopic Normal (applies [facility] (St Examination to non-numeric [facility] results) Medical, PC) ID Date Data Source [id number] 02/11/2020 12:00:00 AM EDT [facility] ([facility]) Name Value Range Interpretation Description Data Sup porting Code Source(s) Document(s ) Urea nitrogen 16 mg/dL Normal (applies [facility] (St [Mass/volume] in to non-numeric [facility] Serum or Plasma results) Medical, PC) Glucose 93 mg/dL Normal (applies [facility] (St [Mass/volume] in to non-numeric [facility] Urine collected for results) Medical, unspecified PC) duration eGFR If NonAfricn 89 Normal (applies [facility] (St Am mL/min/1 to non-numeric [facility] .73 results) Medical, PC) Creatinine 0.79 Normal (applies [facility] (St [Interpretation] in mg/dL to non-numeric [facility] s Urine results) Medical, PC) Sodium 138 Normal (applies [facility] (St [Moles/volume] in mmol/L to non-numeric [facility] Serum or Plasma results) Medical, PC) BUN/Creatinine 20 Normal (applies [facility] (S t Ratio to non-numeric [facility] results) Medical, PC) eGFR If Africn Am 103 Normal (applies [facility] (St mL/min/1 to non-numeric [facility] .73 results) Medical, PC) Potassium 4.2 Normal (applies [facility] (St [Mass/volume] in mmol/L to non-numeric [facility] Blood results) Medical, PC) Carbon dioxide, 22 Normal (applies [facility] ( St total mmol/L to non-numeric [facility] [Moles/volume] in results) Medical, Serum or Plasma PC) Chloride 105 Normal (applies [facility] (St [Moles/volume] in mmol/L to non-numeric [facility] Serum or Plasma results) Medical, PC) Protein 6.6 g/dL Normal (applies [facility] (St [Mass/volume] in to non-numeric [facility] Serum or Plasma results) Medical, PC) Calcium 9.5 Normal (applies [facility] (St [Moles/volume] in mg/dL to non-numeric [facility] Urine collected for results) Medical, unspecified ) duration A/G Ratio 1.8 Normal (applies [facility] (St to non-numeric [facility] results) Medical, ) Globulin, Total 2.4 g/dL Normal (applies [facility] ( St to non-numeric [facility] results) Medical, ) Microalbumin 4.2 g/dL Normal (applies [facility] (St [Mass/time] in to non-numeric [facility] Urine collected for results) Medical, unspecified ) duration Alkaline 44 IU/L Normal (applies [facility] (St phosphatase to non-numeric [facility] [Enzymatic results) Medical, activity/volume] in ) Serum, Plasma or Blood Bilirubin.total 0.4 Normal (applies [facility] ( St [Mass/volume] in mg/dL to non-numeric [facility] Serum or Plasma results) Medical, ) Aspartate 19 IU/L Normal (applies [facility] (St aminotransferase to non-numeric [facility] [Enzymatic results) Medical, activity/volume] in ) Serum or Plasma Alanine 11 IU/L Normal (applies [facility] (St aminotransferase to non-numeric [facility] [Enzymatic results) Medical, activity/volume] in PC) Serum or Plasma ID Date Data Source [id number] 02/11/2020 12:00:00 AM EDT [facility] ([facility], ) Name Value Range Interpretation Description Data Sup porting Code Source(s) Document(s ) Erythrocytes 4.08 Normal (applies [facility] (St [#/volume] in x10E6/uL to non-numeric [facility] Blood by results) Medical, ) Automated count Leukocytes 6.9 Normal (applies [facility] (St [#/volume] in x10E3/uL to non-numeric [facility] Blood by results) Medical, ) Automated count MCV 88 fL Normal (applies [facility] (St to non-numeric [facility] results) [facility], ) Hemoglobin 12.1 Normal (applies [facility] (St [Mass/volume] in g/dL to non-numeric [facility] Blood results) [facility], ) Hematocrit 36.0 % Normal (applies [facility] (St [Volume to non-numeric [facility]'s Fraction] of results) Medical, ) Blood by Automated count MCH 29.7 pg Normal (applies [facility] (St to non-numeric [facility] results) Medical, ) MCHC 33.6 Normal (applies [facility] (St g/dL to non-numeric [facility] results) [facility], ) Platelets 252 Normal (applies [facility] (St [#/area] in x10E3/uL to non-numeric [facility] Blood by results) [facility], ) Microscopy high power field Neutrophils [#] 72 % Normal (applies [facility] ( St in Body fluid by to non-numeric [facility] Manual count results) [facility], ) RDW 13.3 % Normal (applies [facility] (St to non-numeric [facility]'s results) [facility], ) Monocytes 6 % Normal (applies [facility] (St [#/volume] in to non-numeric [facility] Cord blood results) [facility], ) Lymphs 21 % Normal (applies [facility] (St to non-numeric [facility]'s results) [facility], ) Eos 1 % Normal (applies [facility] (St to non-numeric [facility]'s results) [facility], ) Neutrophils 4.9 Normal (applies [facility] (St (Absolute) x10E3/uL to non-numeric [facility]'s results) [facility], ) Basos 0 % Normal (applies [facility] (St to non-numeric [facility] results) [facility], ) Monocytes(Absolu 0.4 Normal (applies [facility] (St te) x10E3/uL to non-numeric [facility]'s results) [facility], ) Lymphs 1.5 Normal (applies [facility] (St (Absolute) x10E3/uL to non-numeric [facility]'s results) [facility], ) Baso (Absolute) 0.0 Normal (applies [facility] ( St x10E3/uL to non-numeric [facility]'s results) [facility], ) Eos (Absolute) 0.1 Normal (applies [facility] (S t x10E3/uL to non-numeric M[facility]'s results) [facility], ) Immature 0 % Normal (applies [facility] (St Granulocytes to non-numeric [facility]'s results) [facility], ) Immature Grans 0.0 Normal (applies [facility] (S t (Abs) x10E3/uL to non-numeric [facility]'s results) [facility], ) ID Date Data Source [id number] 02/11/2020 12:00:00 AM EDT [facility] ([facility], ) Name Value Range Interpretation Description Data Sup porting Code Source(s) Document(s ) Hemoglobin A1c 5.2 % Normal (applies to [facility] (St in Blood non-numeric [facility] results) Medical, PC) ID Date Data Source [id number] 02/11/2020 12:00:00 AM EDT [facility] ([facility], ) Name Value Range Interpretation Description Data Sup porting Code Source(s) Document(s ) Cholesterol 202 Above high normal [facility] (St [Mass/volume] in mg/dL [facility] Serum or Plasma Medical, PC) Triglyceride 125 Normal (applies [facility] (St [Mass/volume] in mg/dL to non-numeric [facility] Serum or Plasma results) Medical, PC) VLDL Cholesterol 21 mg/dL Normal (applies [facility] (St Oni to non-numeric [facility] results) Medical, PC) HDL Cholesterol 89 mg/dL Normal (applies [facility] ( St to non-numeric [facility] results) Medical, PC) LDL Chol Calc 92 mg/dL Normal (applies [facility] (St (NIH) to non-numeric [facility] results) Medical, PC) ID Date Data Source [id number] 02/11/2020 12:00:00 AM EDT [facility] ([facility], ) Name Value Range Interpretation Description Data Sup porting Code Source(s) Document(s ) Specific gravity 1.006 Normal (applies [facility] (St of Pericardial to non-numeric [facility] fluid by results) Medical, Refractometry PC) Urine-Color Yellow Normal (applies [facility] (St to non-numeric [facility] results) Medical, PC) pH of Lower 6.5 Normal (applies [facility] (St respiratory to non-numeric [facility] specimen results) Medical, PC) WBC Esterase Negative Normal (applies [facility] (St to non-numeric [facility]'s results) Medical, PC) Appearance of Clear Normal (applies [facility] (St Abdomen to non-numeric [facility] results) Medical, PC) Protein Negative Normal (applies [facility] (St [Mass/volume] in to non-numeric [facility] Lower results) Medical, respiratory PC) specimen Ketones Negative Normal (applies [facility] (St [Presence] in to non-numeric [facility] Blood by Tablet results) Medical, PC) Glucose Negative Normal (applies [facility] (St [Mass/volume] in to non-numeric [facility] Urine collected results) Medical, for unspecified PC) duration Occult Blood Negative Normal (applies [facility] (St to non-numeric [facility] results) Medical, PC) Bilirubin Negative Normal (applies [facility] (St [Presence] in to non-numeric [facility] Peritoneal fluid results) Medical, PC) Urobilinogen,Rosita 0.2 mg/dL Normal (applies [facility] (St i-Qn to non-numeric [facility] results) Medical, PC) Nitrite, Urine Negative Normal (applies [facility] (S t to non-numeric M[facility]'s results) Medical, PC) Microscopic Normal (applies [facility] (St Examination to non-numeric [facility] results) Medical, PC) ID Date Data Source [id number] 02/11/2020 12:00:00 AM EDT [facility] ([facility]) Name Value Range Interpretation Description Data Sup porting Code Source(s) Document(s ) Creatinine 0.79 Normal (applies [facility] (St [Interpretation] in mg/dL to non-numeric Maged' s Urine results) Medical, PC) Urea nitrogen 16 mg/dL Normal (applies [facility] (St [Mass/volume] in to non-numeric [facility] Serum or Plasma results) Medical, PC) Glucose 93 mg/dL Normal (applies [facility] (St [Mass/volume] in to non-numeric [facility] Urine collected for results) Medical, unspecified PC) duration eGFR If NonAfricn 89 Normal (applies [facility] (St Am mL/min/1 to non-numeric [facility] .73 results) Medical, PC) eGFR If Africn Am 103 Normal (applies [facility] (St mL/min/1 to non-numeric [facility] .73 results) Medical, PC) BUN/Creatinine 20 Normal (applies [facility] (S t Ratio to non-numeric [facility] results) Medical, PC) Potassium 4.2 Normal (applies [facility] (St [Mass/volume] in mmol/L to non-numeric [facility] Blood results) Medical, PC) Sodium 138 Normal (applies [facility] (St [Moles/volume] in mmol/L to non-numeric [facility] Serum or Plasma results) Medical, PC) Chloride 105 Normal (applies [facility] (St [Moles/volume] in mmol/L to non-numeric [facility] Serum or Plasma results) Medical, PC) Carbon dioxide, 22 Normal (applies [facility] ( St total mmol/L to non-numeric [facility] [Moles/volume] in results) Medical, Serum or Plasma PC) Microalbumin 4.2 g/dL Normal (applies [facility] (St [Mass/time] in to non-numeric [facility] Urine collected for results) Medical, unspecified PC) duration Protein 6.6 g/dL Normal (applies [facility] (St [Mass/volume] in to non-numeric [facility] Serum or Plasma results) Medical, ) Calcium 9.5 Normal (applies [facility] (St [Moles/volume] in mg/dL to non-numeric [facility] Urine collected for results) Medical, unspecified PC) duration A/G Ratio 1.8 Normal (applies [facility] (St to non-numeric [facility] results) Medical, ) Globulin, Total 2.4 g/dL Normal (applies [facility] ( St to non-numeric [facility] results) Medical, ) Aspartate 19 IU/L Normal (applies [facility] (St aminotransferase to non-numeric [facility] [Enzymatic results) Medical, activity/volume] in PC) Serum or Plasma Bilirubin.total 0.4 Normal (applies [facility] ( St [Mass/volume] in mg/dL to non-numeric [facility] Serum or Plasma results) Medical, ) Alkaline 44 IU/L Normal (applies [facility] (St phosphatase to non-numeric [facility] [Enzymatic results) Medical, activity/volume] in PC) Serum, Plasma or Blood Alanine 11 IU/L Normal (applies [facility] (St aminotransferase to non-numeric [facility] [Enzymatic results) Medical, activity/volume] in PC) Serum or Plasma ID Date Data Source [id number] 02/11/2020 12:00:00 AM EDT [facility] ([facility], ) Name Value Range Interpretation Description Data Sup porting Code Source(s) Document(s ) Erythrocytes 4.08 Normal (applies [facility] (St [#/volume] in x10E6/uL to non-numeric [facility] Blood by results) Medical, ) Automated count Leukocytes 6.9 Normal (applies [facility] (St [#/volume] in x10E3/uL to non-numeric [facility] Blood by results) Medical, ) Automated count Hematocrit 36.0 % Normal (applies [facility] (St [Volume to non-numeric [facility] Fraction] of results) [facility], ) Blood by Automated count Hemoglobin 12.1 Normal (applies [facility] (St [Mass/volume] in g/dL to non-numeric [facility] Blood results) [facility], ) MCV 88 fL Normal (applies [facility] (St to non-numeric Maged's results) [facility], ) MCHC 33.6 Normal (applies [facility] (St g/dL to non-numeric M[facility]'s results) [facility], ) MCH 29.7 pg Normal (applies [facility] (St to non-numeric Maged's results) [facility], ) RDW 13.3 % Normal (applies [facility] (St to non-numeric Maged's results) [facility], ) Neutrophils [#] 72 % Normal (applies [facility] ( St in Body fluid by to non-numeric [facility] Manual count results) [facility], ) Platelets 252 Normal (applies [facility] (St [#/area] in x10E3/uL to non-numeric [facility] Blood by results) [facility], ) Microscopy high power field Lymphs 21 % Normal (applies [facility] (St to non-numeric Maged's results) [facility], ) Monocytes 6 % Normal (applies [facility] (St [#/volume] in to non-numeric [facility]'s Cord blood results) [facility], ) Basos 0 % Normal (applies [facility] (St to non-numeric Mgaed's results) [facility], ) Neutrophils 4.9 Normal (applies [facility] (St (Absolute) x10E3/uL to non-numeric [facility]'s results) [facility], ) Eos 1 % Normal (applies [facility] (St to non-numeric Maged's results) [facility], ) Lymphs 1.5 Normal (applies [facility] (St (Absolute) x10E3/uL to non-numeric Maged's results) [facility], ) Eos (Absolute) 0.1 Normal (applies [facility] (S t x10E3/uL to non-numeric Maged's results) [facility], ) Monocytes(Absolu 0.4 Normal (applies [facility] (St te) x10E3/uL to non-numeric Maged's results) [facility], ) Immature 0 % Normal (applies [facility] (St Granulocytes to non-numeric Maged's results) [facility], ) Baso (Absolute) 0.0 Normal (applies [facility] ( St x10E3/uL to non-numeric M[facility]'s results) Medical, PC) Immature Grans 0.0 Normal (applies [facility] (S t (Abs) x10E3/uL to non-numeric [facility] results) Medical, PC) Procedure Social History Code Duration Value Status Description Data Source(s ) Smoking 03/25/2020 no smoking no completed no smoking no [facility] ( St 12:00:00 AM EDT drinking drinking [facility], PC) Smoking 03/25/2020 Unknown if ever completed Unknown if ever [facility] EN (St 12:00:00 AM EDT smoked smoked [facility] d[facility], PC) Smoking 03/24/2020 no smoking no completed no smoking no [facility] ( St 12:00:00 AM EDT drinking drinking [facility], PC) Smoking 03/24/2020 Unknown if ever completed Unknown if ever [facility] EN (St 12:00:00 AM EDT smoked smoked [facility], PC) Smoking 03/23/2020 no smoking no completed no smoking no [facility] ( St 12:00:00 AM EDT drinking drinking [facility] d[facility], PC) Smoking 03/23/2020 Unknown if ever completed Unknown if ever [facility] EN (St 12:00:00 AM EDT smoked smoked [facility] d[facility], PC) Smoking 03/18/2020 no smoking no completed no smoking no [facility] ( St 12:00:00 AM EDT drinking drinking [facility], PC) Smoking 03/18/2020 Unknown if ever completed Unknown if ever [facility] EN (St 12:00:00 AM EDT smoked smoked [facility], PC) Smoking 03/16/2020 no smoking no completed no smoking no [facility] ( St 12:00:00 AM EDT drinking drinking [facility] d[facility], PC) Smoking 03/16/2020 Unknown if ever completed Unknown if ever [facility] EN (St 12:00:00 AM EDT smoked smoked [facility] d[facility], PC) Smoking 03/10/2020 no smoking no completed no smoking no [facility] ( St 12:00:00 AM EDT drinking drinking [facility] dical, PC) Smoking 03/10/2020 Unknown if ever completed Unknown if ever [facility] EN (St 12:00:00 AM EDT smoked smoked [facility] d[facility], PC) Smoking 02/11/2020 no smoking no completed no smoking no [facility] ( St 12:00:00 AM EDT drinking drinking [facility], ) Smoking 02/11/2020 Unknown if ever completed Unknown if ever [facility] EN (St 12:00:00 AM EDT smoked smoked [facility], ) Vital Signs ID Date Data Source [id number] Name Value Range Interpretation Code Description Data Source(s) Body mass index 19.9 kg/m2 19.9 kg/m2 [facility] (S t [facility] (BMI) [Ratio] [facility] ) Diastolic blood 90 mm[Hg] 90 mm[Hg] [facility] (S t Maged's pressure [facility]) Systolic blood 110 mm[Hg] 110 mm[Hg] [facility] ([facility], ) Body weight 139 lb 139 lb [facility]) Body height 70 in 70 in [facility] ([facility]) Body mass index 19.9 kg/m2 19.9 kg/m2 [facility] ([facility] (BMI) [Ratio] [facility] ) Diastolic blood 90 mm[Hg] 90 mm[Hg] [facility] ([facility]) Systolic blood 110 mm[Hg] 110 mm[Hg] [facility] ([facility], ) Body weight 139 lb 139 lb [facility] ([facility]) [facility]) Body mass index 19.8 kg/m2 19.8 kg/m2 [facility] ([facility] (BMI) [Ratio] [facility] ) Diastolic blood 74 mm[Hg] 74 mm[Hg] [facility] ([facility]) Systolic blood 120 mm[Hg] 120 mm[Hg] [facility] ([facility]) Body weight 138 lb 138 lb [facility] ([facility]) Body height 70 in 70 in [facility] ([facility]) Body mass index 19.8 kg/m2 19.8 kg/m2 [facility] ([facility] (BMI) [Ratio] [facility] ) Diastolic blood 74 mm[Hg] 74 mm[Hg] [facility] ([facility]) Systolic blood 120 mm[Hg] 120 mm[Hg] [facility] ([facility], ) Body weight 138 lb 138 lb [facility] ([facility], ) Body height 70 in 70 in [facility], ) Body mass index 19.8 kg/m2 19.8 kg/m2 [facility] ([facility] (BMI) [Ratio] [facility], ) Diastolic blood 74 mm[Hg] 74 mm[Hg] [facility] ([facility], ) Systolic blood 120 mm[Hg] 120 mm[Hg] [facility] ([facility], ) Body weight 138 lb 138 lb [facility] ([facility], ) Body height 70 in 70 in [facility] ([facility], ) Body mass index 19.8 kg/m2 19.8 kg/m2 [facility] ([facility] (BMI) [Ratio] [facility], ) Diastolic blood 74 mm[Hg] 74 mm[Hg] [facility] ([facility], ) Systolic blood 120 mm[Hg] 120 mm[Hg] [facility] ([facility], ) Body weight 138 lb 138 lb [facility] ([facility], ) Body height 70 in 70 in [facility] ([facility], ) Body mass index 19.8 kg/m2 19.8 kg/m2 [facility] ([facility] (BMI) [Ratio] [facility], ) Diastolic blood 76 mm[Hg] 76 mm[Hg] [facility] ([facility], ) Systolic blood 120 mm[Hg] 120 mm[Hg] [facility] ([facility], ) Body weight 138 lb 138 lb [facility] ([facility], ) Body height 70 in 70 in [facility] ([facility], ) Body mass index 19.8 kg/m2 19.8 kg/m2 [facility] ([facility] (BMI) [Ratio] [facility], ) Diastolic blood 76 mm[Hg] 76 mm[Hg] [facility] ([facility], ) Systolic blood 120 mm[Hg] 120 mm[Hg] [facility] ([facility], ) Body weight 138 lb 138 lb [facility] ) Body height 70 in 70 in [facility], ) Body mass index 19.8 kg/m2 19.8 kg/m2 [facility] ([facility] (BMI) [Ratio] [facility], ) Diastolic blood 76 mm[Hg] 76 mm[Hg] [facility] ([facility], ) Systolic blood 120 mm[Hg] 120 mm[Hg] [facility] ([facility], ) Body weight 138 lb 138 lb [facility] ([facility], ) Body height 70 in 70 in [facility] ([facility], ) Body mass index 19.8 kg/m2 19.8 kg/m2 [facility] ([facility] (BMI) [Ratio] [facility], ) Diastolic blood 76 mm[Hg] 76 mm[Hg] [facility] ([facility], ) Systolic blood 120 mm[Hg] 120 mm[Hg] [facility] ([facility], ) Body weight 138 lb 138 lb [facility] ([facility], ) Body height 70 in 70 in [facility], ) Body mass index 19.8 kg/m2 19.8 kg/m2 [facility] ([facility] (BMI) [Ratio] [facility], ) Diastolic blood 76 mm[Hg] 76 mm[Hg] [facility] ([facility], ) Systolic blood 120 mm[Hg] 120 mm[Hg] [facility] ([facility], ) Body weight 138 lb 138 lb [facility] ([facility], ) Body height 70 in 70 in [facility] ([facility], ) Body mass index 19.8 kg/m2 19.8 kg/m2 [facility] ([facility] (BMI) [Ratio] [facility], ) Diastolic blood 76 mm[Hg] 76 mm[Hg] [facility] ([facility], ) Systolic blood 120 mm[Hg] 120 mm[Hg] [facility] ([facility], ) Body weight 138 lb 138 lb [facility] ([facility], ) Body height 70 in 70 in [facility] ([facility] ) Body mass index 19.9 kg/m2 19.9 kg/m2 [facility] ([facility] (BMI) [Ratio] [facility], ) Diastolic blood 78 mm[Hg] 78 mm[Hg] [facility] ([facility], ) Systolic blood 120 mm[Hg] 120 mm[Hg] [facility] ([facility], ) Body weight 139 lb 139 lb [facility] ([facility], ) Body height 70 in 70 in [facility] ([facility], ) Body mass index 19.9 kg/m2 19.9 kg/m2 [facility] ([facility] (BMI) [Ratio] [facility], ) Diastolic blood 78 mm[Hg] 78 mm[Hg] [facility] ([facility], ) Systolic blood 120 mm[Hg] 120 mm[Hg] [facility] ([facility], ) Body weight 139 lb 139 lb [facility] ([facility], ) Body height 70 in 70 in [facility] ([facility], ) Body mass index 19.9 kg/m2 19.9 kg/m2 [facility] ([facility] (BMI) [Ratio] [facility], ) Diastolic blood 78 mm[Hg] 78 mm[Hg] [facility] ([facility], ) Systolic blood 120 mm[Hg] 120 mm[Hg] [facility] ([facility], ) Body weight 139 lb 139 lb [facility] ([facility], ) Body height 70 in 70 in [facility] ([facility], ) Body mass index 19.9 kg/m2 19.9 kg/m2 [facility] ([facility] (BMI) [Ratio] [facility], ) Diastolic blood 78 mm[Hg] 78 mm[Hg] [facility] ([facility], ) Body mass index 19.9 kg/m2 19.9 kg/m2 [facility] ([facility] (BMI) [Ratio] [facility], ) Diastolic blood 78 mm[Hg] 78 mm[Hg] [facility] ([facility], ) Systolic blood 120 mm[Hg] 120 mm[Hg] [facility] ([facility], ) Body weight 139 lb 139 lb [facility] ([facility], ) Body height 70 in 70 in [facility] ([facility], ) Systolic blood 120 mm[Hg] 120 mm[Hg] [facility] ([facility], ) Body weight 139 lb 139 lb [facility] ([facility], ) Body height 70 in 70 in [facility] ([facility], ) Body mass index 19.9 kg/m2 19.9 kg/m2 [facility] ([facility] (BMI) [Ratio] [facility], ) Diastolic blood 78 mm[Hg] 78 mm[Hg] [facility] ([facility], ) Systolic blood 120 mm[Hg] 120 mm[Hg] [facility] ([facility], ) Body weight 139 lb 139 lb [facility] ([facility], ) Body height 70 in 70 in [facility] ([facility], ) Body mass index 19.9 kg/m2 19.9 kg/m2 [facility] ([facility] (BMI) [Ratio] [facility], ) Diastolic blood 78 mm[Hg] 78 mm[Hg] [facility] ([facility], ) Systolic blood 120 mm[Hg] 120 mm[Hg] [facility] ([facility], ) Body weight 139 lb 139 lb [facility] ([facility], ) Body height 70 in 70 in [facility] ([facility], )
[2020-03-27] MEDS ORDERED: methylPREDNISolone NA SUCC 125 MG/2 ML VIAL IVPB ONE (16:34)
[2020-03-27] MEDS ORDERED: methylPREDNISolone NA SUCC 125 MG/2 ML VIAL ONE (16:41)
--- NOTE | 2020-03-27 16:44 | PDOC ---
History of Present Illness - General Chief Complaint: Shortness of Breath Stated Complaint: CHEST PAIN/DIFFICULTY BREATHING Time Seen by Provider: 03/27/20 16:00 History Source: Patient Exam Limitations: Clinical Condition - History of Present Illness Initial Comments: 03/27/20 16:39 Patient with past medical history of heart murmur, mitral valve prolapse status post repair few years ago presented with complaint of 3 weeks history of persistent shortness of breath and feeling of swelling to chest wall and bilateral upper neck area with pain over chest wall and side of neck. Patient has had multiple visits to PCP which chest x-ray was done which was normal and patient had chest CT without contrast done with read by PCP 3 days ago which shows pectus excavatum and accessory breast muscle. Patient reported swelling to chest wall has been worsening the past day radiating to posterior aspect of bilateral neck area especially on the right side. Patient also report has been having forgetfulness in the past few weeks. Denies nausea, vomiting, dizziness, blurry vision, change in vision. Denies history of autoimmune disease or family history of autoimmune disease. Patient report has been taking NSAIDs prescribed by PCP for pain but the pain has been persistent. Patient reports she was referred to follow-up with pulmonology by PCP but has not been able to secure appointment until over 3 weeks from now. Denies any other symptoms Is this a multiple visit Asthma Patient?: No Timing/Duration: other (3 weeks) Past History - Medical History Allergies/Adverse Reactions: Allergies Allergy/AdvReac Type Severity Reaction Status Date / Time No Known Allergies Allergy Verified 03/27/20 15:53 Home Medications: Ambulatory Orders Methylprednisolone [Medrol Dose [facility]] 4 mg PO ASDIR #21 tablet 03/27/20 COPD: No - Reproductive History Is Patient Now?: No - Psycho-Social/Smoking History Smoking History: Never smoked Review of Systems - Review of Systems Able to Perform ROS?: Yes Is the patient limited Estonian proficient: No Constitutional: No: Chills, Fever, Malaise HEENTM: No: Symptoms Reported, See HPI, Eye Pain, Blurred Vision, Tearing, Recent change in vision, Double Vision, Cataracts, Ear Pain, Ocular Prothesis, Ear Discharge, Nose Pain, Nose Congestion, Tinnitus, Nose Bleeding, Hearing Loss, Throat Pain, Throat Swelling, Mouth Pain, Dental Problems, Difficulty Swallowing, Mouth Swelling, Other Respiratory: Yes: Symptoms reported, See HPI, Cough. No: Orthopnea, Shortness of Breath, SOB with Exertion, SOB at Rest, Stridor, Wheezing, Productive cough, Hemoptysis, Other Cardiac (ROS): No: Symptoms Reported, See HPI, Chest Pain, Edema, Irregular Heart Rate, Lightheadedness, Palpitations, Syncope, Chest Tightness, Other ABD/GI: No: Symptoms Reported, Nausea, Vomiting Musculoskeletal: No: Symptoms Reported Integumentary: No: Symptoms Reported Neurological: No: Symptoms reported, Numbness, Dizziness All Other Systems: Reviewed and Negative *Physical Exam - Vital Signs Last Vital Signs Temp Pulse Resp BP Pulse Ox 99 F 82 18 139/80 99 03/27/20 15:50 03/27/20 15:50 03/27/20 15:50 03/27/20 15:50 03/27/20 15:50 - Physical Exam 03/27/20 16:45 GENERAL: Well developed, well nourished. Awake and alert. No acute distress. HEENT: Normocephalic, atraumatic. PERRLA, EOMI. No conjunctival pallor. Sclera are non-icteric. Moist mucous membranes. Oropharynx is clear. NECK: Supple. Full ROM. CARDIOVASCULAR: Regular rate and rhythm. No murmurs, rubs, or gallops. Distal pulses are 2+ and symmetric.no JVD PULMONARY: No evidence of respiratory distress. Lungs clear to auscultation bilaterally. No wheezing, rales or rhonchi. ABDOMINAL: Soft. Non-tender. Non-distended. No rebound or guarding. No organomegaly. Normoactive bowel sounds. MUSCULOSKELETAL Normal range of motion at all joints. mild pectus excavatum with mild visible swelling to muscle of the posterior aspect of bilateral chest wall. No visible swelling to neck. Mild subjective tenderness over bilateral pectoral muscle and mid sternum EXTREMITIES: No cyanosis. No clubbing. No edema. No calf tenderness. SKIN: Warm and dry. Normal capillary refill. No cyanosis. No jaundice. NEUROLOGICAL: Alert, awake, appropriate. Gait is normal without ataxia. PSYCHIATRIC: Cooperative. Good eye contact. Appropriate mood General Appearance: Yes: Nourished, Appropriately Dressed. No: Apparent Distress ED Treatment Course - LABORATORY CBC & Chemistry Diagram: 03/27/20 16:30 03/27/20 16:30 - RADIOLOGY Radiology Studies Ordered: Category Date Time Status CHEST CTA [CT] Stat CT Scan 03/27/20 16:35 Ordered Medical Decision Making - Medical Decision Making 03/27/20 16:41 Patient with past medical history of heart murmur, mitral valve prolapse status post repair few years ago presented with complaint of 3 weeks history of persistent shortness of breath and feeling of swelling to chest wall and bilateral upper neck area with pain over chest wall and side of neck. Patient has had multiple visits to PCP which chest x-ray was done which was normal and patient had chest CT without contrast done with read by PCP 3 days ago which shows pectus excavatum and accessory breast muscle. Patient reported swelling to chest wall has been worsening the past day radiating to posterior aspect of bilateral neck area especially on the right side. Patient also report has been having forgetfulness in the past few weeks. Denies nausea, vomiting, dizziness, blurry vision, change in vision. Denies history of autoimmune disease or family history of autoimmune disease. Patient report has been taking NSAIDs prescribed by PCP for pain but the pain has been persistent. Patient reports sh jos was referred to follow-up with pulmonology by PCP but has not been able to secure appointment until over 3 weeks from now. Denies any other symptoms Exam significant for mild pectus excavatum with mild visible swelling to muscle of the posterior aspect of bilateral chest wall. No visible swelling to neck. Mild subjective tenderness over bilateral pectoral muscle and mid sternum. Full range of motion of cervical spine. Normal neuro exam. Patient in no acute apparent distress. Symptoms likely autoimmune related versus less likely PE. CBC, CMP, ESR, CRP lab ordered. Chest CTA ordered to rule out PE. D-dimer ordered. Solu-Medrol 125 mg IV ordered for pain. Treat based on lab and im aging results 03/27/20 19:16 CBC, chemistry lab, ESR CRP lab unremarkable. Chest CT shows no acute abnormality and shows no PE. Patient reported significant improvement of swelling with Solu-Medrol. Patient symptoms likely autoimmune related and stable for discharge on Medrol pack as needed for pain with rheumatology and pulmonology follow-up. Plan discussed with patient patient agrees with treatment plan. Patient asymptomatic now and stable for discharge Discharge - Discharge Information Problems reviewed: Yes Clinical Impression/Diagnosis: SOB (shortness of breath), Costochondral chest pain Condition: Stable Disposition: HOME - Admission No - Additional Discharge Information Prescriptions: Methylprednisolone [Medrol Dose [facility]] 4 mg PO ASDIR #21 tablet - Follow up/Referral Referrals: Damon Casey MD [Primary Care Provider] - Edwardo Renee MD [Staff Physician] - Albino Pedraza MD, MD [Staff Physician] - Anthony Jackson MD [Staff Physician] - - Patient Discharge Instructions Additional Instructions: Your chest CT with IV contrast is normal and shows no blood clot or acute abnor mality. Your symptoms likely inflammatory effect from muscle. Follow-up referred rheumatology Dr. Hernandez as soon as possible for autoimmune work-up. You also being given referral to the canoe inspector final Dr. Renee and Dr. Pedraza which ever can see you faster. Call on Monday to follow-up with referring physicians. Take prescribed medication as prescribed for muscle pain and to follow-up - Post Discharge Activity
[2020-03-27 17:12] LABS: BASO % 0.7 % (0-2.0); EOS % 2.4 % (0-4.5); HEMOGLOBIN 13.2 GM/dL (10.7-15.3); LYMPH % 26.6 % (8-40); MCH 29.9 pg (25.7-33.7); MCHC 33.9 g/dl (32.0-36.0); MEAN CELL VOLUME 88.2 fl (80-96); MEAN PLT VOLUME 10.6 fl (7.5-11.1); MONO % 7.2 % (3.8-10.2); NEUT % 63.1 % (42.8-82.8); PLATELET COUNT 226 K/MM3 (134-434); RBC 4.42 M/mm3 (3.60-5.2)
[2020-03-27 17:18] LABS: CHLORIDE 106 mmol/L (98-107); POTASSIUM 3.8 mmol/L (3.5-5.1); SODIUM 138 mmol/L (136-145)
[2020-03-27 17:20] LABS: BLOOD UREA NITROGEN 22.2 mg/dL (7-18); CALCIUM 9.3 mg/dL (8.5-10.1)
[2020-03-27 17:21] LABS: ALBUMIN 3.5 g/dl (3.4-5.0); ANION GAP 4 MMOL/L (8-16); CO2 28 mmol/L (21-32); GLUCOSE,RANDOM 89 mg/dL (74-106)
[2020-03-27 17:24] LABS: CREATININE 0.9 mg/dL (0.55-1.3); SGOT/AST 12 U/L (15-37); SGPT/ALT 17 U/L (13-61)
[2020-03-27 17:25] LABS: BILIRUBIN,TOTAL 0.4 mg/dL (0.2-1); TOT PROT 7.2 g/dl (6.4-8.2)
[2020-03-27 17:26] LABS: ALK PHOS 60 U/L (45-117)
[2020-03-27 18:01] LABS: ERYTHROCYTE SEDIMENTATION RATE 9 mm/hr (0-20)
[2020-03-27 19:38] VITALS: PULSE 84
== END 2020-03-27 19:41 | disposition home or self-care (01) ==
LOC: JER 15:25
PROC: 3E033GC Introduction of Other Therapeutic Substance into Peripheral Vein, Percutaneous Approach (ICD-10-PCS; principal; 2020-03-27)
DX: R06.02 Shortness of breath (principal); R07.1 Chest pain on breathing
CPT/HCPCS: 36415; 71275-TC; 80053; 82550; 84484; 84703; 85025; 85379; 85651; 86140; 99284-25; Q9967